=== PATIENT | female | born 1960 | race Caucasian/White ===

== ENCOUNTER 2018-05-25 18:01 | Emergency (ER) | payer OTHER ==
--- NOTE | 2018-05-25 18:56 | EDPHY ---
H & P Stated Complaint: slipped,fell,lac to L buttock, hit head, no LOC - Personal History Current Tetanus Diphtheria and Acellular Pertussis (TDAP): Yes - Medical/Surgical History Other PMH: ARTHRITIS, PCO, ORTHO SURG, BACK FUSION, KNEE SURG, LEFT SHOULDER REPLACEMENT, RIGHT HIP REPLACEMENT, CATARACTS SURG. - Social History Smoking Status: Never smoked Time Seen by Provider: 05/25/18 18:56 Constitutional: Initial Vital Signs Temperature (C) 36.7 C 05/25/18 18:10 Heart Rate 88 05/25/18 18:10 Respiratory Rate 18 05/25/18 18:10 Blood Pressure 206/95 H 05/25/18 18:10 O2 Sat (%) 94 05/25/18 18:10 O2 Delivery Mode Room Air Allergies/Adverse Reactions: tetracycline [Tetracycline] Allergy (Mild, Verified 05/25/18 18:11) bee pollen [Bee Pollen] Allergy (Verified 05/25/18 18:11) prochlorperazine [From Compazine] Allergy (Verified 05/25/18 18:11) prochlorperazine edisylate [From Compazine] Allergy (Verified 05/25/18 18:11) prochlorperazine maleate [From Compazine] Allergy (Verified 05/25/18 18:11) BEE STING Allergy (Uncoded 03/07/16 13:40) Home Medications: Medication Instructions Recorded DULoxetine [Cymbalta 30 MG (*)] 30 mg PO 05/25/18 Hydrocodone/APAP 5/325 [[place] 1 each PO 05/25/18 5/325 (*)] Meloxicam 7.5 mg PO 05/25/18 Medical Decision Making Procedures: Procedure: Laceration repair. Verbal consent was obtained from the patient. The 4cm laceration on the left buttock was anesthetized in the usual fashion. The wound was irrigated, draped and explored to its base. There were no deep structures involved. No tendon injury was identified. The wound was repaired with 3.0 Vicryl 1. Deep sutures and the 9 sutures with the 4-0 nylon. The wound repair was tolerated well. The wound was well approximated. The procedure was performed by myself. ( Flip Strong) ED Course/Re-evaluation: CHIEF COMPLAINT: Fall HISTORY OF PRESENT ILLNESS: 58-year-old female who was organizing things in her garage when she stepped down and missed the last step of a small step ladder. She fell backwards and hit a power driven brush maker that was sitting there. She suffered a laceration to her right buttocks. She did hit her head on the ground but she denies loss of consciousness. She denies amnesia. She denies nausea vomiting. She denies any neurologic deficits or any scalp trauma. She is really only complaining about the laceration on her right butt cheek which is still bleeding. REVIEW OF SYSTEMS: A comprehensive 10 system review of systems is otherwise negative aside from elements mentioned in the history of present illness and medical decision making. PHYSICAL EXAM: HR, BP, O2 Sat, RR. Temp noted General Appearance: Alert, well hydrated, appropriate, and non-toxic appearing. Head: Negative CT Clark Head rules. Atraumatic without scalp tenderness or obvious injury Eyes: Pupils equal, round, reactive to light and accommodation, EOMI, no trauma , no injection. Ears: Clear bilaterally, no perforation, normal landmarks Nose: Atraumatic, no rhinorrhea, clear. Throat: There is no erythema or exudates, no lesions, normal tonsils, mucus membranes moist. Neck: Negative nexus criteria. Supple, 2+ carotid upstroke, nontender, no lymphadenopathy. Respiratory: No retractions, no distress, no wheezes, and no accessory muscle use. Lungs are clear to auscultation bilaterally. Cardiovascular: Regular rate and rhythm, no murmurs, rubs, or gallops. Bilateral carotid, radial, dorsalis pedis, and posterior tibial pulses intact. Good capillary refill all extremities. Gastrointestinal: Abdomen is soft, nontender, non-distended, no masses, no rebound, no guarding, no peritoneal signs. Musculoskeletal: Normal active ROM of all extremities, atraumatic. Neurological: Alert, appropriate, and interactive. The patient has normal DTRs and non-focal cranial nerves, motor, sensory, and cerebellar exam. Skin: No rashes, good turgor, no nodules on palpation. Past medical history: Significant back surgeries and orthopedic and arthritic problems Past surgical history: Significant back and orthopedic surgeries Family history: Noncontributory Social history: , employed, does not abuse tobacco drugs or alcohol DIFFERENTIAL DIAGNOSIS: The differential diagnosis for the patient's trauma included but was not limited to intracranial injury, long bone and pelvic bone fractures, spinal injury, intra-abdominal injury, and intra-thoracic injury. MEDICAL DECISION MAKING: This patient has a laceration of her right butt cheek. Glynn ghosh will repair that. Please see his note for details. This patient does not meet criteria for head neck scan. This patient is in no distress. We will discharge the patient with PCP follow-up as needed. She is up-to-date on tetanus shot (Yasmany Chappell) Departure - Departure Disposition: Home, Routine, Self-Care Clinical Impression: Laceration of right buttock Qualifiers: Encounter type: initial encounter Qualified Code(s): S31.811A - Laceration without foreign body of right buttock, initial encounter Condition: Good Instructions: Laceration (ED) Additional Instructions: 1. Care for your wound as directed. 2. Return to the emergency department for worsening of condition. Referrals: Tye Osorio MD [Primary Care Provider] - As per Instructions
[2018-05-25 20:12] VITALS: BP 175/88
== END 2018-05-25 20:14 | disposition home or self-care (01) ==
PROC: 0HQ8XZZ Repair Buttock Skin, External Approach (ICD-10-PCS; principal; 2018-05-25)
DX: S31.811A Laceration without foreign body of right buttock, initial encounter (principal); W11.XXXA Fall on and from ladder, initial encounter; Y92.015 Private garage of single-family (private) house as the place of occurrence of the external cause; Y93.89 Activity, other specified; Y99.8 Other external cause status